=== PATIENT | female | born 1980 | race Caucasian/White ===

== ENCOUNTER 2019-03-13 06:15 | Emergency (ER) | payer MEDICAID ==
[~2019-03-13] VITALS: Ht 162.6 cm; Wt 53.0 kg
[2019-03-13 06:19] VITALS: BP 110/80
== END 2019-03-13 08:00 | disposition left against medical advice (07) ==
LOC: ER 06:51
DX: R46.2 Strange and inexplicable behavior (principal); Z53.21 Procedure and treatment not carried out due to patient leaving prior to being seen by health care provider
CPT/HCPCS: 99283